=== PATIENT | male | born 1940 | race Caucasian/White ===

== ENCOUNTER 2020-01-06 04:38 | Inpatient (IN) ==
[2020-01-02 13:53] LABS: Basophils # (Auto) 0.04 K/mcL (0.00-0.20); Basophils % (Auto) 0.6 % (0.0-2.0); Eosinophils # (Auto) 0.07 K/mcL (0.00-0.70); Eosinophils % (Auto) 1.1 % (0.0-7.0); Hematocrit 37.3 % (41.0-55.0); Hemoglobin 13.3 g/dL (13.5-16.5); Lymphocytes # (Auto) 1.61 K/mcL (1.50-4.80); Lymphocytes % (Auto) 24.3 % (15.0-49.0); Mean Cell Volume 87.1 fL (80.0-100.0); Mean Corpuscular HGB Conc 35.7 g/dL (31.0-36.0); Mean Platelet Volume 9.6 fL (7.4-10.4); Monocytes # (Auto) 0.64 K/mcL (0.10-0.90); Monocytes % (Auto) 9.7 % (1.0-12.0); Neutrophils % (Auto) 64.3 % (38.0-78.0); Platelet Count 270 K/mcL (140-440); RBC 4.28 M/mcL (4.50-5.90); Red Cell Distribution Width 12.6 % (11.5-14.5); WBC 6.6 K/mcL (4.5-11.0)
[2020-01-02 14:10] LABS: INR 0.9 (0.9-1.1); Prothrombin Time 12.7 sec (11.9-14.5)
[2020-01-02 15:21] LABS: ALT/SGPT 18 U/L (<40); AST/SGOT 17 U/L (<40); Albumin 4.4 gm/dL (3.2-5.2); Albumin/Globulin Ratio 1.6 (1.0-2.3); Alkaline Phosphatase 72 U/L (39-117); Bilirubin,Total 1.2 mg/dL (0.1-1.0); Blood Urea Nitrogen 18 mg/dL (8-23); Calcium 9.9 mg/dL (8.6-10.4); Carbon Dioxide 26 mmol/L (22-30); Chloride 101 mmol/L (96-108); Globulin 2.8 gm/dL (2.2-3.7); Glomerular Filtration Rate 72; Glucose 94 mg/dL (70-105)
[2020-01-02 17:47] LABS: Appearance,Urine CLEAR (Clear); Bilirubin,Urine Negative (Negative); Color,Urine YELLOW; Culture Indicated,Urine No; Glucose,Urine (UA) Negative (Negative); Ketones,Urine Negative (Negative); Leukocyte Esterase,Urine Negative /ug (Negative); Mucus,Urine FEW /hpf; Nitrate,Urine Negative (Negative); Protein,Urine 30 mg/dL (Negative); Specific Gravity,Urine 1.028 (1.000-1.035); Urine Blood Negative (Negative); Urine Hyaline Cast 1 /lph (0-2); Urine RBC 0 /hpf (0-1); Urine Squamous Epithelial Cell 0 /hpf (0-4); Urine WBC < 1 /hpf (0-4); Urobilinogen,Urine Negative
[~2020-01-06 04:38] MED LIST: IPRATROPIUM/ALBUTEROL 3 ML AMPUL.NEB NEB PRN; SCOPOLAMINE 1 PATCH PATCH TOPICAL PRN
[2020-01-06] MEDS ORDERED: ceFAZolin 2 GM in DEXTROSE 5% IN WATER 50 ML IV SCH (06:00)
[2020-01-06] MEDS ORDERED: PROPOFOL 200 MG/20 ML VIAL IV ONE (07:33)
[2020-01-06] MEDS ORDERED: LIDOCAINE HCL/PF 100 MG/5 ML SYRINGE IV ONE (07:33)
[2020-01-06] MEDS ORDERED: KETAMINE 100 MG/ML ML ONE (07:33)
[2020-01-06] MEDS ORDERED: PROMETHAZINE 25 MG/ML VIAL ONE (07:33)
[2020-01-06] MEDS ORDERED: fentaNYL 100 MCG/2 ML VIAL IV ONE (07:33)
[2020-01-06] MEDS ORDERED: GLYCOPYRROLATE 0.2 MG/ML VIAL IV ONE (07:33)
[2020-01-06] MEDS ORDERED: ONDANSETRON 4 MG/2 ML VIAL ONE (07:33)
[2020-01-06] MEDS ORDERED: TRANEXAMIC ACID 1,000 MG/10 ML VIAL IV ONE (07:33)
[2020-01-06] MEDS ORDERED: ePHEDrine 50 MG/ML AMPUL IV ONE (07:33)
[2020-01-06] MEDS ORDERED: DEXAMETHASONE 10 MG/ML VIAL ONE (07:33)
[2020-01-06] MEDS ORDERED: SUCCINYLCHOLINE 20 MG/ML ML IV ONE (07:33)
[2020-01-06] MEDS ORDERED: ePHEDrine 50 MG/ML AMPUL IV PRN (08:40)
[2020-01-06] MEDS ORDERED: ATROPINE SULFATE 0.4 MG/ML VIAL IV PRN (08:40)
[2020-01-06] MEDS ORDERED: ONDANSETRON 4 MG/2 ML VIAL IV PRN (08:40)
[2020-01-06] MEDS ORDERED: METOPROLOL TARTRATE 5 MG/5 ML VIAL IV PRN (08:40)
[2020-01-06] MEDS ORDERED: ACETAMINOPHEN 1,000 MG/100 ML BOTTLE IV ONE (08:40)
[2020-01-06] MEDS ORDERED: NALOXONE HCL 0.4 MG/ML VIAL IV PRN (08:40)
[2020-01-06] MEDS ORDERED: IPRATROPIUM/ALBUTEROL 3 ML AMPUL.NEB NEB PRN (08:40)
[2020-01-06] MEDS ORDERED: FLUMAZENIL 0.1 MG/ML ML IV PRN (08:40)
[2020-01-06] MEDS ORDERED: METHOCARBAMOL 1,000 MG/10 ML VIAL IV PRN ×2 (08:40→10:33)
[2020-01-06] MEDS ORDERED: diphenhydrAMINE 50 MG/ML VIAL IV PRN (08:40)
[2020-01-06] MEDS ORDERED: PROMETHAZINE 25 MG/ML VIAL IV PRN ×2 (08:40→10:33)
[2020-01-06] MEDS ORDERED: HYDROmorphone 0.5 MG/0.5 ML SYRINGE IV PRN (08:40)
[2020-01-06] MEDS ORDERED: LACTATED RINGERS 1,000 ML IV SCH (08:45)
[2020-01-06] MEDS ORDERED: THROMBIN (BOVINE) 5,000 UNIT VIAL TOPICAL ONE (09:03)
[2020-01-06] MEDS ORDERED: HYDROmorphone 1 MG/ML SYRINGE IV PRN (10:28)
[2020-01-06] MEDS ORDERED: 0.9 % SODIUM CHLORIDE 10 ML SYRINGE IV ONE (10:30)
[2020-01-06] MEDS ORDERED: METHOCARBAMOL 750 MG TABLET PO PRN (10:33)
[2020-01-06] MEDS ORDERED: ONDANSETRON 4 MG ODT TABLET SL PRN (10:33)
[2020-01-06] MEDS ORDERED: GELATIN SPONGE,ABSORBABLE 1 EACH SPONGE TOPICAL ONE (10:36)
[2020-01-06] MEDS ORDERED: HYDROmorphone 2 MG TABLET PO PRN (10:38)
[2020-01-06] MEDS ORDERED: BUPIVACAINE 0.25% 50 ML VIAL IJ ONE (10:40)
--- NOTE | 2020-01-06 10:46 | Brief Operative Note ---
Brief Operative Note Date of procedure: 01/06/20 Pre-op diagnosis: stenosis with instability Post-op diagnosis: same Procedure: decompression and fusion L5S1 Grafts/Implants: Yes Anesthesia: GETA Complications: none Surgeon: Osvaldo Frye Rn Medical Inpatient Services: Hugo Ocasio Estimated blood loss (cc): 100 Condition: stable Disposition: PACU
[2020-01-06] MEDS: MEPERIDINE 25 MG/ML SYRINGE IV PRN ×2 (11:14→11:21)
[2020-01-06] MEDS: fentaNYL 100 MCG/2 ML VIAL IV PRN ×2 (11:16→11:22)
[2020-01-06] MEDS: LACTATED RINGERS 1,000 ML IV SCH ×2 (12:21→22:06)
--- NOTE | 2020-01-06 14:14 | XRay Report ---
HISTORY: FINDINGS: IMPRESSION: 1.3 minutes of fluoroscopy time was used. Interpreted and Authenticated by: Varinder Valencia 01/06/20
[2020-01-06] MEDS: ceFAZolin 1 GM VIAL IV SCH (15:30)
[2020-01-06] MEDS: HYDROmorphone 2 MG TABLET PO PRN ×2 (15:31→21:14)
[2020-01-06] MEDS: BENZOCAINE/MENTHOL 1 LOZENGE PO PRN (20:12)
[2020-01-06] MEDS: SENNOSIDES 1 TABLET PO SCH (21:13)
[2020-01-06] MEDS: SIMVASTATIN 10 MG TABLET PO SCH (21:13)
[2020-01-06] MEDS: DOCUSATE SODIUM 100 MG CAPSULE PO SCH (21:13)
[2020-01-06] MEDS: KETOROLAC TROMETHAMINE 3 ML DROPS OP SCH (21:18)
[2020-01-07] MEDS: HYDROmorphone 2 MG TABLET PO PRN ×4 (01:04→16:43)
[2020-01-07] MEDS: ceFAZolin 1 GM VIAL IV SCH ×3 (03:46→21:07)
[2020-01-07 07:14] LABS: Hematocrit 32.9 % (41.0-55.0); Hemoglobin 11.7 g/dL (13.5-16.5)
[2020-01-07 07:57] LABS: Blood Urea Nitrogen 13 mg/dL (8-23); Calcium 9.5 mg/dL (8.6-10.4); Carbon Dioxide 28 mmol/L (22-30); Chloride 104 mmol/L (96-108); Glomerular Filtration Rate 72; Glucose 94 mg/dL (70-105)
[2020-01-07] MEDS: LACTATED RINGERS 1,000 ML IV SCH ×4 (08:37→20:03)
[2020-01-07] MEDS ORDERED: LATANOPROST OPHTH DROPS 2.5ML BOTTLE OU SCH (09:00)
[2020-01-07] MEDS: MULTIVIT,THER IRON,CA,FA & MIN 1 TABLET PO SCH (09:42)
[2020-01-07] MEDS: DOCUSATE SODIUM 100 MG CAPSULE PO SCH ×2 (09:42→20:51)
[2020-01-07] MEDS: CELECOXIB 200 MG CAPSULE PO SCH ×2 (10:27→20:51)
--- NOTE | 2020-01-07 17:25 | Orthopedic Progress Note ---
SUBJECTIVE Subjective Patient information: Note initiated : 01/07/20 at 5:24 pm Service Date, if different from initiated Date: [] Patient: Isaac Bailey 79 y/o M admitted on 01/06/20 for L5-S1 Lumbar Decompression and Fusion. Chief Complaint: []complains of no issues Constitutional Vitals: Vital Signs Temp Pulse Resp BP Pulse Ox 98.5 F 96 H 18 114/76 95 01/07/20 16:36 01/07/20 16:36 01/07/20 16:36 01/07/20 16:36 01/07/20 16:36 Period Temp Pulse Resp BP Sys/Alonso Pulse Ox Last 24 Hr 98.2 F-98.9 F 68-105 16-18 100-116/58-76 95-97 Intake and Output 01/07/20 01/07/20 01/07/20 05:59 13:59 21:59 Intake Total 1375 2440 480 Output Total 530 450 15 Balance 845 1989 Intake & Output: Intake & Output 01/07/20 01/07/20 01/07/20 05:59 13:59 21:59 Intake Total 1375 2440 480 Output Total 530 450 15 Balance 845 1989 Intake: IV 975 1000 Lactated Ringers 1,000 ml @ 522 718 9544 mls/hr IV .Q10H [facility] Rx#: [id number] Oral 400 1440 480 Output: Drainage 50 15 Back 50 15 Drainage 80 Back 80 Void Amount 450 400 Other: Meal Lunch Dinner Percent of Meal Consumed 100% 100% Feeding Ability Independent Independent Urine Appearance Clear Urine Color Bright Yellow # Voids 1 OBJ DATA Labs CBC & Chem 7: 01/07/20 05:49 01/07/20 05:49 Labs: Abnormal Lab Results 01/07/20 01/07/20 05:49 05:49 Hgb 11.7 L Hct 32.9 L Anion Gap 7.0 L Meds: Medications Acetaminophen (Tylenol) 650 mg PO Q6HP PRN; Protocol PRN Reason: Per Pain Protocol/Fever > 101 Cefazolin Sodium (Ancef) 2 gm IV Q8H [facility] Stop: 01/08/20 06:01 Last Admin: 01/07/20 14:55 Dose: 2 gm Documented by: Celecoxib (Celebrex) 200 mg PO BID [facility] Last Admin: 01/07/20 10:27 Dose: 200 mg Documented by: Docusate Sodium (Colace) 100 mg PO BID [facility] Last Admin: 01/07/20 09:42 Dose: 100 mg Documented by: Hydromorphone HCl (Dilaudid) 0 mg IV Q2HP PRN; Protocol PRN Reason: Per Pain Protocol Hydromorphone HCl (Dilaudid) 1 - 2 mg PO Q4HP PRN; Protocol PRN Reason: Per Pain Protocol Last Admin: 01/07/20 16:43 Dose: 2 mg Documented by: Hydromorphone HCl (Dilaudid) 2 - 4 mg PO Q4-6HP PRN; Protocol PRN Reason: Per Pain Protocol Last Admin: 01/06/20 12:12 Dose: 4 mg Documented by: Lactated Ringer's (Lactated Ringers) 1,000 mls @ 100 mls/hr IV .Q10H [facility] Last Admin: 01/07/20 16:06 Dose: Not Given Documented by: Iron Carb/Multivit/[place]/Folic Acid (Multivitamin W/Minerals) 1 tab PO DAILY [facility] Last Admin: 01/07/20 09:42 Dose: 1 tab Documented by: Ketorolac Tromethamine (Ketorolac Tromethamine) 1 ml OP QHS [facility] Last Admin: 01/06/20 21:18 Dose: 1 ml Documented by: Latanoprost (Xalatan Ophth Drops) 1 gtt OU [facility] Methocarbamol (Robaxin) 750 mg IV Q6HP PRN PRN Reason: Muscle Spasm Methocarbamol (Robaxin) 750 mg PO Q6HP PRN PRN Reason: Muscle Spasm Ondansetron HCl (Zofran Odt) 4 mg SL Q4HP PRN; Protocol PRN Reason: Nausea And Vomiting Promethazine HCl (Phenergan) 12.5 mg IV Q6HP PRN; Protocol PRN Reason: Nausea And Vomiting Senna (Senokot) 2 tab PO [facility] Last Admin: 01/06/20 21:13 Dose: 2 tab Documented by: Simvastatin (Zocor) 10 mg PO HS [facility] Last Admin: 01/06/20 21:13 Dose: 10 mg Documented by: Throat Lozenges (Cepacol) 1 lozenge PO PRN PRN PRN Reason: Sore Throat Last Admin: 01/06/20 20:12 Dose: 1 lozenge Documented by: A/P Narrative A/P Narrative: mobilize dc drain tomorrow, possible dc tomorrow Time Spent With Patient Time: Total time spent is greater than 50% in coordination of care (as documented) at patient's floor/unit and/or counseling patient:
--- NOTE | 2020-01-07 17:30 | Discharge Summary ---
Discharge Provider Provider Patient information: Note initiated : 01/07/20 at 5:26 pm Service Date, if different from initiated Date: [] Patient: Isaac Bailey 79 y/o M admitted on 01/06/20 for L5-S1 Lumbar Decompression and Fusion. Chief Complaint: [] Date of admission: 01/06/20 04:38 Discharge date: 01/08/20 Primary care physician: Parth Maldonado DO COURSE Hospital Course Hospital course: uneventful Discharge diagnosis: spinal stenosis Time Spent with Patient Time attestation: Total time spent providing and/or coordinating discharge services: Physical Examination Exam Incision draining: No Clean and dry: Yes Discharge Instructions - Spine Patient Instructions Spine Protocol: Limit bending and stooping. No heavy lifting. Wear brace/collar at all times except when showering and sleeping. Additional Dressing Instructions: May Shower 48 hours post-operative and replace with dry dressing after shower. Discharge Plan Patient/Caregiver Discharge Instructions Activity: increase activity as tolerated Diet: Regular Diet Prescriptions: No Action latanoprost 0.005 % drops 1 drp OPHTHALMIC QHS RF: 0 ketorolac 0.5 % drops 1 drp OPHTHALMIC QHS RF: 0 omega-3 fatty acids [Fish Oil Concentrate] 1,000 mg capsule 1,000 mg PO QDAY RF: 0 flaxseed oil 1,000 mg capsule 1,000 mg PO QDAY RF: 0 simvastatin 10 MG tablet 10 mg PO HS RF: 0 vitamin B complex Tablet 1 tab PO QDAY RF: 0 multivitamin with minerals [Daily Multivitamin-Minerals] Tablet 1 tab PO QDAY RF: 0 Prostate Health 160-100-100 mg-unit-mcg Tablet 1 tab PO DAILY RF: 0 Follow Up Plan Follow up with: Hugo Ocasio PA-C [Physician Controlled Area Checker] - 01/19/20 8:20 am Patient Disposition: Home, Self-Care Discharge Orders: Discharge Order (Routine); Ordered 01/07/20 Ordered By: Osvaldo Frye Pending Pending Pending: Resuscitation Status Full Code Diet Regular Diet Start ThuJan 05 Lunch Cefazolin Sodium (Ancef) 2 gm IV Q8H [facility] Stop: 01/08/20 06:01 Last Admin: 01/07/20 14:55 Dose: 2 gm Documented by: Admin: 01/07/20 03:46 Dose: 2 gm Documented by: Admin: 01/06/20 15:30 Dose: 2 gm Documented by: KARY Celecoxib (Celebrex) 200 mg PO BID [facility] Last Admin: 01/07/20 10:27 Dose: 200 mg Documented by: SANTOS Docusate Sodium (Colace) 100 mg PO BID [facility] Last Admin: 01/07/20 09:42 Dose: 100 mg Documented by: Admin: 01/06/20 21:13 Dose: 100 mg Documented by: ANJANA Hydromorphone HCl (Dilaudid) 1 - 2 mg PO Q4HP PRN; Protocol PRN Reason: Per Pain Protocol Last Admin: 01/07/20 16:43 Dose: 2 mg Documented by: Admin: 01/07/20 10:13 Dose: 2 mg Documented by: Admin: 01/07/20 06:07 Dose: 2 mg Documented by: Admin: 01/07/20 01:04 Dose: 2 mg Documented by: Admin: 01/06/20 21:14 Dose: 2 mg Documented by: Admin: 01/06/20 15:31 Dose: 2 mg Documented by: KARY Hydromorphone HCl (Dilaudid) 2 - 4 mg PO Q4-6HP PRN; Protocol PRN Reason: Per Pain Protocol Last Admin: 01/06/20 12:12 Dose: 4 mg Documented by: KARY Lactated Ringer's (Lactated Ringers) 1,000 mls @ 100 mls/hr IV .Q10H [facility] Last Admin: 01/07/20 16:06 Dose: Not Given Documented by: Admin: 01/07/20 09:52 Dose: 100 mls/hr Documented by: Admin: 01/07/20 08:37 Dose: Not Given Documented by: Infusion: 01/07/20 08:06 Dose: 100 mls/hr Documented by: Admin: 01/06/20 22:06 Dose: 100 mls/hr Documented by: Infusion: 01/06/20 22:06 Dose: 100 mls/hr Documented by: Admin: 01/06/20 12:21 Dose: 100 mls/hr Documented by: KARY Iron Carb/Multivit/[place]/Folic Acid (Multivitamin W/Minerals) 1 tab PO DAILY [facility] Last Admin: 01/07/20 09:42 Dose: 1 tab Documented by: SANTOS Ketorolac Tromethamine (Ketorolac Tromethamine) 1 ml OP QHS [facility] Last Admin: 01/06/20 21:18 Dose: 1 ml Documented by: ANJANA Senna (Senokot) 2 tab PO HS [facility] Last Admin: 01/06/20 21:13 Dose: 2 tab Documented by: ANJANA Simvastatin (Zocor) 10 mg PO HS [facility] Last Admin: 01/06/20 21:13 Dose: 10 mg Documented by: ANJANA Throat Lozenges (Cepacol) 1 lozenge PO PRN PRN PRN Reason: Sore Throat Last Admin: 01/06/20 20:12 Dose: 1 lozenge Documented by: ANJANA Shift Summary 01/07/20 16:49 Shift Summary by Lydia Veliz Patient A&Ox4, VSS on RA. Post op day 1 decompression and fusion of L5-S1. Patient walked with PT in hallway and to and from in room with X1-SBA assist FWW, GB, and back brace. Dressing to lower back is CDI, one UNIQUE drain draining sanguinous fluid. IV infusing LR @ 100ml/hr to RF. Medicated for pain x2 with PO Dilaudid. Scheduled Celebrex given. No other complaints of discomfort. Will update at bedside. Initialized on 01/07/20 16:49 - END OF NOTE
[2020-01-07] MEDS: SIMVASTATIN 10 MG TABLET PO SCH (20:51)
[2020-01-07] MEDS: SENNOSIDES 1 TABLET PO SCH (20:51)
[2020-01-07] MEDS: ACETAMINOPHEN 325 MG TABLET PO PRN (21:06)
[2020-01-07] MEDS: BENZOCAINE/MENTHOL 1 LOZENGE PO PRN (21:07)
[2020-01-07] MEDS: KETOROLAC TROMETHAMINE 3 ML DROPS OP SCH (21:07)
[2020-01-07] MEDS: LATANOPROST OPHTH DROPS 2.5ML BOTTLE OU SCH (21:08)
[2020-01-08] MEDS: LACTATED RINGERS 1,000 ML IV SCH ×2 (02:53→06:08)
[2020-01-08] MEDS: ceFAZolin 1 GM VIAL ONE ×2 (05:53→06:45)
[2020-01-08 06:07] LABS: Hemoglobin 9.9 g/dL (13.5-16.5)
[2020-01-08] MEDS: ceFAZolin 1 GM VIAL IV SCH ×2 (06:43→06:46)
[2020-01-08] MEDS: ACETAMINOPHEN 325 MG TABLET PO PRN ×2 (08:24→16:19)
[2020-01-08] MEDS: MULTIVIT,THER IRON,CA,FA & MIN 1 TABLET PO SCH (08:25)
[2020-01-08] MEDS: DOCUSATE SODIUM 100 MG CAPSULE PO SCH ×2 (08:25→20:38)
[2020-01-08] MEDS: CELECOXIB 200 MG CAPSULE PO SCH ×2 (08:25→20:38)
--- NOTE | 2020-01-08 08:57 | Orthopedic Progress Note ---
SUBJECTIVE Subjective Patient information: Note initiated : 01/08/20 at 8:54 am Service Date, if different from initiated Date: [] Patient: Isaac Bailey 79 y/o M admitted on 01/06/20 for L5-S1 Lumbar Decompression and Fusion. Chief Complaint: mild pain. Constitutional Vitals: Vital Signs Temp Pulse Resp BP Pulse Ox 98.6 F 72 18 141/78 95 01/08/20 08:41 01/08/20 08:41 01/08/20 08:41 01/08/20 08:41 01/08/20 08:41 Period Temp Pulse Resp BP Sys/Alonso Pulse Ox Last 24 Hr 98.5 F-100.4 F 69-96 14-24 107-141/61-78 93-97 Intake and Output 01/07/20 01/08/20 01/08/20 21:59 05:59 13:59 Intake Total 8911 317 1802 Output Total 245 1070 315 Balance 1235 -570 1185 Weight 227 lb 11.2 oz Intake & Output: Intake & Output 01/07/20 01/08/20 01/08/20 21:59 05:59 13:59 Intake Total 2029 647 8556 Output Total 245 1070 315 Balance 1235 -570 1185 Weight 227 lb 11.2 oz Intake: IV 1000 1000 Lactated Ringers 1,000 ml @ 100 1000 1000 mls/hr IV .Q10H [facility] Rx#: [id number] Oral 480 500 500 Output: Drainage 15 Back 15 Drainage 30 20 15 Back 30 20 15 Void Amount 200 1050 250 Estimated Blood Loss 50 Other: Meal Dinner Percent of Meal Consumed 100% Feeding Ability Independent Urine Appearance Clear Clear Clear Urine Color Bright Yellow Dark Yellow Bright Yellow Urine Odor Normal Strong OBJ DATA Labs CBC & Chem 7: 01/08/20 05:02 01/07/20 05:49 Labs: Abnormal Lab Results 01/08/20 01/07/20 01/07/20 05:02 05:49 05:49 Hgb 9.9 L 11.7 L Hct 28.0 L 32.9 L Anion Gap 7.0 L Bandages c/d/i NVI-distal Palpable tibial pulses. Meds: Medications Acetaminophen (Tylenol) 650 mg PO Q6HP PRN; Protocol PRN Reason: Per Pain Protocol/Fever > 101 Last Admin: 01/08/20 08:24 Dose: 650 mg Documented by: Celecoxib (Celebrex) 200 mg PO BID [facility] Last Admin: 01/08/20 08:25 Dose: 200 mg Documented by: Docusate Sodium (Colace) 100 mg PO BID [facility] Last Admin: 01/08/20 08:25 Dose: 100 mg Documented by: Hydromorphone HCl (Dilaudid) 0 mg IV Q2HP PRN; Protocol PRN Reason: Per Pain Protocol Hydromorphone HCl (Dilaudid) 1 - 2 mg PO Q4HP PRN; Protocol PRN Reason: Per Pain Protocol Last Admin: 01/07/20 16:43 Dose: 2 mg Documented by: Hydromorphone HCl (Dilaudid) 2 - 4 mg PO Q4-6HP PRN; Protocol PRN Reason: Per Pain Protocol Last Admin: 01/06/20 12:12 Dose: 4 mg Documented by: Lactated Ringer's (Lactated Ringers) 1,000 mls @ 100 mls/hr IV .Q10H [facility] Last Admin: 01/08/20 06:08 Dose: 100 mls/hr Documented by: Iron Carb/Multivit/[employer]/Folic Acid (Multivitamin W/Minerals) 1 tab PO DAILY [facility] Last Admin: 01/08/20 08:25 Dose: 1 tab Documented by: Ketorolac Tromethamine (Ketorolac Tromethamine) 1 ml OP QHS [facility] Last Admin: 01/07/20 21:07 Dose: 1 ml Documented by: Latanoprost (Xalatan Ophth Drops) 1 gtt OU HS [facility] Last Admin: 01/07/20 21:08 Dose: 1 gtt Documented by: Methocarbamol (Robaxin) 750 mg IV Q6HP PRN PRN Reason: Muscle Spasm Methocarbamol (Robaxin) 750 mg PO Q6HP PRN PRN Reason: Muscle Spasm Ondansetron HCl (Zofran Odt) 4 mg SL Q4HP PRN; Protocol PRN Reason: Nausea And Vomiting Promethazine HCl (Phenergan) 12.5 mg IV Q6HP PRN; Protocol PRN Reason: Nausea And Vomiting Senna (Senokot) 2 tab PO [facility] Last Admin: 01/07/20 20:51 Dose: 2 tab Documented by: Simvastatin (Zocor) 10 mg PO [facility] Last Admin: 01/07/20 20:51 Dose: 10 mg Documented by: Throat Lozenges (Cepacol) 1 lozenge PO PRN PRN PRN Reason: Sore Throat Last Admin: 01/07/20 21:07 Dose: 1 lozenge Documented by: A/P Assessment and plan (1) H/O spinal fusion: Status: Chronic Comment: Mobilize with PT May discharge to home tomorrow 01/09/20. Mirilax prn for constipation Time Spent With Patient Time: Total time spent is greater than 50% in coordination of care (as documented) at patient's floor/unit and/or counseling patient:
[2020-01-08] MEDS ORDERED: POLYETHYLENE GLYCOL 3350 17 GM PACKET PO PRN (09:16)
[2020-01-08] MEDS: HYDROmorphone 2 MG TABLET PO PRN (17:30)
[2020-01-08] MEDS: KETOROLAC TROMETHAMINE 3 ML DROPS OP SCH (20:34)
[2020-01-08] MEDS: SIMVASTATIN 10 MG TABLET PO SCH (20:38)
[2020-01-08] MEDS: LATANOPROST OPHTH DROPS 2.5ML BOTTLE OU SCH (20:38)
[2020-01-08] MEDS: SENNOSIDES 1 TABLET PO SCH (20:38)
[2020-01-09] MEDS: HYDROmorphone 2 MG TABLET PO PRN ×2 (03:54→13:49)
[2020-01-09 06:52] LABS: Hematocrit 30.9 % (41.0-55.0)
[2020-01-09] MEDS: CELECOXIB 200 MG CAPSULE PO SCH (08:47)
[2020-01-09] MEDS: MULTIVIT,THER IRON,CA,FA & MIN 1 TABLET PO SCH (08:47)
[2020-01-09] MEDS: DOCUSATE SODIUM 100 MG CAPSULE PO SCH ×2 (08:47→08:52)
[2020-01-09] MEDS: ACETAMINOPHEN 325 MG TABLET PO PRN (09:04)
--- NOTE | 2020-01-09 10:07 | Operative Note ---
DATE OF OPERATION: 01/06/2020 PREOPERATIVE DIAGNOSES: Spondylolisthesis with stenosis and radiculopathy, L5-S1. POSTOPERATIVE DIAGNOSES: Spondylolisthesis with stenosis and radiculopathy, L5-S1. OPERATION PROPOSED: 1. Lumbar decompression with decompressed central canal, lateral recess, and neural foramen, L5-S1. 2. Nonsegmental instrumentation, L5-S1. 3. Application of prosthetic device interbody space and interbody fusion, L5-S1. 4. Posterior/posterolateral fusion, L5-S1. OPERATION PERFORMED: 1. Lumbar decompression with decompressed central canal, lateral recess, and neural foramen, L5-S1. 2. Nonsegmental instrumentation, L5-S1. 3. Application of prosthetic device interbody space and interbody fusion, L5-S1. 4. Posterior/posterolateral fusion, L5-S1. OPERATING SURGEON: Osvaldo Frye M.D. MAIL TELLER: Hugo Ocasio PA-C. The PA's assistance was required for the safe and efficient completion of the entire case. This provider's expertise and technical skill were required throughout the case. The PA assisted with preoperative coordination, intraoperative retraction, wound closure, dressing and splint application, as well as postoperative documentation and care coordination. INDICATIONS: This is a gentleman who has had debilitating radiculopathy. He has a spondylolisthesis which is degenerative at the L5-S1 level. He has significant lateral recess stenosis causing nerve root compression. We have elected to proceed with decompression and fusion as he has failed conservative measures. OPERATION IN DETAIL: Informed consent was obtained. The patient was taken to the operating room where he was provided the appropriate anesthetic and prophylactic antibiotics. He was carefully positioned. His back was prepped sterilely. Midline incision was made. Dissection was carried down to expose the spinous process and lamina L4 through S1. I dissected out and around the facet joint of L5-S1 exposing the transverse process of L5, out and around the facet joint of L4-5 exposing the transverse process of L5 and the sacral ala. Radiographs obtained confirmed the level of dissection. The facet capsule was debrided. The very hypertrophied overgrown facet was debrided. The inferior one-half of the spinous process and lamina of L5 and the superior portion of S1 was resected, as was the hypertrophied medial border of the facet joint. We debrided ligamentum flavum and then worked out into the opening of the neural foramen. At the end of the decompression the central canal, lateral recess, and neural foramen were very adequately decompressed L5-S1. Pedicle screws were placed by advancing a gearshift awl cannulating the pedicle. I probed the pedicle with a ball tip whip to ensure there was no pedicle wall violation. We are also using EMG monitoring. The pedicle was then tapped and re-probed. An appropriate length pedicle screw was placed L5-S1, both on the right and the left. The application of prosthetic device interbody space and interbody fusion was then performed by mobilizing the nerve root towards the midline. The disk was incised. I brought in a variety of clara, which allowed by turning these blunt dilators, allowed distraction across the disk space. We spread across the disk space and held this with a working selvin. Extensive curettage of the disk space was performed removing disk material and debriding down to subchondral bone. The disk was irrigated thoroughly. The disk space was filled with morcellized bone graft and a cage from [employer] was filled with morcellized bone graft and impacted into the site prepared for it to allow for fusion. The disk space was additionally backfilled behind the cage. The posterior and posterolateral fusion was then performed by extensively decorticating the posterolateral aspect of the spine. A bone graft was applied into and against the decorticated posterolateral aspect of the spine to allow for fusion. The procedure was completed by compressing across the interbody graft and ____ the selvin into the top loading pedicle screws. We had irrigated extensively prior to placing bone graft. I closed over a deep drain with an 0 Vicryl in interrupted fashion, 2-0 Vicryl inverted deep dermal, and a running subcuticular. The procedure was tolerated well. No complications to this procedure. Estimated blood loss was 100 to 200 mL. GDD:shannan Job ID: [id number] Doc ID: [id number] Osvaldo Frye MD
== END 2020-01-09 14:00 | disposition home or self-care (01) | DRG 455 ==
LOC: MEDSUR 04:38
PROVIDERS: ADMIT Orthopaedic Surgery Orthopaedic Surgery of the Spine; ATTEND Orthopaedic Surgery Orthopaedic Surgery of the Spine